=== PATIENT | female | born 1995 | race African-American/Black ===

== ENCOUNTER 2020-02-10 09:11 | Emergency (ER) | payer MEDICAID ==
[~2020-02-10] VITALS: Ht 167.6 cm; Wt 75.0 kg
[~2020-02-10 09:11] MED LIST: IRON-1 PO; PREN-88 PO
[2020-02-10 10:21] LABS: BASOPHILS % 0.3 % (0.0-2.0); EOSINOPHILS % 1.5 % (0.0-5.0); HEMATOCRIT. 32.4 % (36.0-48.0); HEMOGLOBIN. 11.3 g/dL (12.0-16.0); LYMPHOCYTES % 25.7 % (20.0-50.0); MEAN CORPUSCULAR HEMOGLOBIN 32.6 pg (28.0-32.0); MEAN CORPUSCULAR VOLUME 93.4 fL (81.0-99.0); MEAN PLATELET VOLUME 9.3 fl (7.4-10.4); MONOCYTES % 7.2 % (2.0-8.0); NEUTROPHILS % 65.3 % (40.0-76.0); PLATELET 237 x1000/uL (130-400); RED BLOOD CELL COUNT 3.46 mill/uL (4.2-5.4); RED CELL DISTRIBUTION WIDTH 13.1 % (11.6-14.6)
[2020-02-10 10:28] LABS: CHLORIDE 107 mEq/L (98-107)
[2020-02-10 10:55] LABS: B-HCG QUANTITATIVE 44491 mIU/mL (<3)
[2020-02-10 11:25] VITALS: BP 112/74
[2020-02-10 12:57] LABS: CLARITY URINE TURBID (CLEAR); COLOR URINE YELLOW (YELLOW); KETONES URINE NEGATIVE (NEGATIVE); LEUKOCYTE ESTERASE URINE 2+ (NEGATIVE); NITRITE URINE NEGATIVE (NEGATIVE); OCCULT BLOOD URINE NEGATIVE (NEGATIVE); PROTEIN URINE 1+ (NEGATIVE); SPECIFIC GRAVITY URINE 1.019 (1.005-1.030); UROBILINOGEN URINE 0.2 E.U./dL (0.2-1.0)
== END 2020-02-10 19:42 | disposition home or self-care (01) ==
LOC: ER 09:11
DX: O46.91 Antepartum hemorrhage, unspecified, first trimester (principal); O23.31 Infections of other parts of urinary tract in pregnancy, first trimester; Z3A.08 8 weeks gestation of pregnancy; Z79.899 Other long term (current) drug therapy
CPT/HCPCS: 36415; 76801; 80053; 81003; 84702; 85025; 86850; 86900; 87077; 87186; 93005; 99285

== ENCOUNTER 2020-02-11 10:13 | Emergency (ER) | payer MEDICAID ==
[~2020-02-11] VITALS: Ht 167.6 cm; Wt 76.0 kg
[2020-02-11 10:18] VITALS: BP 92/55
== END 2020-02-11 10:44 | disposition home or self-care (01) ==
LOC: ER 10:13
DX: O23.41 Unspecified infection of urinary tract in pregnancy, first trimester (principal); Z3A.08 8 weeks gestation of pregnancy; O20.0 Threatened abortion
CPT/HCPCS: 99282; 99283